=== PATIENT | female | born 2005 | race Caucasian/White ===

== ENCOUNTER 2024-03-30 17:57 | Emergency (ER) | payer MEDICAID ==
[~2024-03-30] VITALS: Ht 165.1 cm; Wt 58.9 kg
[2024-03-30 18:23] VITALS: O2SAT 98
[2024-03-30] MEDS: KETOROLAC 15MG/ML VIAL IM ONE (23:24)
[2024-03-30] MEDS: ONDANSETRON HCL 4MG TABLET PO ONE (23:24)
[2024-03-31 00:10] VITALS: BP 111/61; PULSE 87; RESP 18; TEMP 36.66960; O2SAT 98
== END 2024-03-31 00:10 | disposition home or self-care (01) ==
LOC: ER 17:57
DX: J10.1 Influenza due to other identified influenza virus with other respiratory manifestations (principal); Z20.822 Contact with and (suspected) exposure to COVID-19
CPT/HCPCS: 99284; 71045; 87426; 81025; 87804 ×2; 96372; Q0162; J1885